=== PATIENT | female | born 1985 | race Caucasian/White ===

== ENCOUNTER 2019-02-28 17:44 | Emergency (ER) | payer MEDICAID ==
[~2019-02-28] VITALS: Ht 162.6 cm; Wt 81.6 kg
[2019-02-28 17:48] VITALS: BP 149/44
--- NOTE | 2019-02-28 17:58 | NUR ---
TO ED 12 VIA EMS CREW.
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
[2019-02-28] MEDS ORDERED: KETOROLAC 60 MG/2 ML VIAL IM ONE (18:15)
--- NOTE | 2019-02-28 18:24 | NUR ---
TO XRAY VIA W/C.
--- NOTE | 2019-02-28 18:51 | NUR ---
pt returned from radiology
--- NOTE | 2019-02-28 19:09 | NUR ---
REPORT TO KARMA VELA.
[2019-02-28 19:52] VITALS: BP 149/44
--- NOTE | 2019-02-28 19:52 | NUR ---
Patient discharged with v/s stable. Written and verbal after care instructions given and explained. Patient alert, oriented and verbalized understanding of instructions. Ambulatory with steady gait. All questions addressed prior to discharge. ID band removed. Patient advised to follow up with PMD. Rx of ACETAMINOPHEN given. Patient educated on indication of medication including possible reaction and side effects. Opportunity to ask questions provided and answered. ACCOMPANIED BY SON.
== END 2019-02-28 19:52 | disposition home or self-care (01) ==
LOC: MED 17:44
DX: S16.1XXA Strain of muscle, fascia and tendon at neck level, initial encounter (principal); S39.012A Strain of muscle, fascia and tendon of lower back, initial encounter; E11.9 Type 2 diabetes mellitus without complications; V89.2XXA Person injured in unspecified motor-vehicle accident, traffic, initial encounter; Y93.89 Activity, other specified; Y92.89 Other specified places as the place of occurrence of the external cause; Y99.8 Other external cause status
CPT/HCPCS: 71045; 72040; 72100; 96372; 99283; J1885

== ENCOUNTER 2024-01-29 00:36 | Emergency (ER) | payer MEDICAID ==
[~2024-01-29] VITALS: Ht 165.1 cm; Wt 92.2 kg
[2024-01-29 00:41] VITALS: BP 132/86; PULSE 92; RESP 20; TEMP 98.3; O2SAT 97
[2024-01-29 01:19] LABS: BASOPHILS % (AUTO) 0.4 % (0.0-2.0); EOSINOPHILS # (AUTO) 0.2 K/uL (0-0.4); HEMATOCRIT 38.9 % (36-48); HEMOGLOBIN 12.9 g/dL (12.0-16.0); LYMPHOCYTES # (AUTO) 3.5 K/uL (2.5-16.5); MEAN CORPUSCULAR HEMOGLOBIN 31 pg (27-31); MEAN CORPUSCULAR HGB CONC 33 g/dL (33-37); MEAN CORPUSCULAR VOLUME 93.7 fL (80-94); MONOCYTES # (AUTO) 0.9 K/uL (0.8-1.0); MONOCYTES % (AUTO) 7.6 % (1.7-9.3); PLATELET COUNT (AUTO) 232 K/uL (140-450); RED BLOOD CELL COUNT(AUTO) 4.16 MIL/uL (4.20-5.40); RED CELL DISTRIBUTION WIDTH 13.6 % (11.6-13.7); WHITE BLOOD COUNT (AUTO) 11.6 K/uL (4.8-10.8)
[2024-01-29] MEDS: MECLIZINE 25 MG TAB PO ONE ×2 (01:20→03:32)
[2024-01-29 01:30] LABS: CALCIUM 9.5 mg/dL (8.5-10.1); CARBON DIOXIDE 22.2 mmol/L (21-32); POTASSIUM 3.2 mmol/L (3.5-5.1)
[2024-01-29] MEDS: ONDANSETRON 4 MG/2 ML VIAL IVP ONE (01:39)
[2024-01-29] MEDS: LORazepam 2 MG/ML VIAL IVP ONE (01:40)
[2024-01-29 01:43] LABS: BILIRUBIN,DIRECT 0.1 mg/dL (0.0-0.3); TOTAL BILIRUBIN 0.4 mg/dL (0.0-1.0)
[2024-01-29] MEDS: POTASSIUM CHLORIDE 10 MEQ TABER PO ONE (02:17)
[2024-01-29 02:34] LABS: APPEARANCE,URINE CLEAR (CLEAR); BILIRUBIN,URINE NEGATIVE (NEGATIVE); BLOOD, URINE TRACE-I (NEGATIVE); COLOR,URINE YELLOW (YELLOW); LEUKOCYTE ESTERASE ,URINE NEGATIVE (NEGATIVE); NITRITE, URINE NEGATIVE (NEGATIVE); PH,URINE 7.5 (5.0-9.0); PROTEIN,URINE TRACE (NEGATIVE); UGLUCOSE NEGATIVE (NEGATIVE); UROBILINOGEN,URINE 0.2 EU/dL (0.2 - 1)
[2024-01-29 02:37] LABS: BACTERIA,URINE 10-30 (MOD) /HPF (None Seen); MUCUS,URINE 1+ /LPF (None Seen); SQUAMOUS EPITHELIAL CELL,UR 0-3 (FEW) /LPF (0-3 (FEW)); WBC,URINE 0-5 /HPF (0-5)
[2024-01-29 02:42] LABS: AMPHETAMINE, URINE NEGATIVE ng/ml (NEG <=1000); BARBITURATE, URINE NEGATIVE ng/ml (NEG <=200); BENZODIAZEPINE, URINE NEGATIVE ng/mL (NEG <=200); CANNABINOID, URINE NEGATIVE ng/mL (NEG <=50); COCAINE, URINE NEGATIVE ng/mL (NEG <=300); OPIATE, URINE NEGATIVE ng/mL (NEG <=2000); PHENCYCLIDINE SCREEN,URINE NEGATIVE ng/mL (NEG <=25)
[2024-01-29] MEDS: NACL 0.9% 1,000 ML IV ONE (03:31)
[2024-01-29] MEDS: diphenhydrAMINE 50 MG/ML VIAL IVP ONE (03:31)
[2024-01-29] MEDS: METOCLOPRAMIDE 10 MG/2 ML INJ VIAL IVP ONE (03:32)
[2024-01-29] MEDS ORDERED: MECL-303 PO (05:55)
[2024-01-29] MEDS ORDERED: ONDA-188 SL (05:55)
[2024-01-29 06:10] VITALS: BP 110/57; PULSE 79; RESP 15; TEMP 97.9; O2SAT 94
== END 2024-01-29 06:10 | disposition home or self-care (01) ==
LOC: MED 00:36
DX: R42 Dizziness and giddiness (principal); R11.2 Nausea with vomiting, unspecified; R10.2 Pelvic and perineal pain; E11.9 Type 2 diabetes mellitus without complications; Z90.710 Acquired absence of both cervix and uterus; Z79.899 Other long term (current) drug therapy
CPT/HCPCS: 36415; 70450; 70496; 70498; 74176; 80048; 80076; 80305; 81001; 81025; 84484; 85025; 87086; 93005; 96361; 96374; 96375; 99285; J1200; J2405; J2765; J7030; J8597; Q9967; J2060